=== PATIENT | female | born 1980 | race Caucasian/White ===

== ENCOUNTER 2016-06-27 13:27 | Emergency (ER) | payer MEDICAID ==
[~2016-06-27] VITALS: Ht 167.6 cm; Wt 56.8 kg
[~2016-06-27 13:27] MED LIST: ATIVAN 0.50.5 MG/TAB PO; CYMBALTA; CYMBALTA 20MG20 MG PO; MULTIPLE VITAMI1 CAP PO; NORCO 325 MG-101 TAB PO; ZANAFLEX2 MG PO
[2016-06-27 13:46] VITALS: BP 118/72; PULSE 86; TEMP 98.7
[2016-06-27] MEDS ORDERED: NEURONTIN400 MG/CAP PO (14:05)
[2016-06-27] MEDS ORDERED: ABILIFY5 MG PO (14:06)
== END 2016-06-27 15:00 | disposition home or self-care (01) ==
LOC: COL.ER 13:27
DX: S93.401A Sprain of unspecified ligament of right ankle, initial encounter (principal); S96.911A Strain of unspecified muscle and tendon at ankle and foot level, right foot, initial encounter; S93.601A Unspecified sprain of right foot, initial encounter; W10.1XXA Fall (on)(from) sidewalk curb, initial encounter; Y92.008 Other place in unspecified non-institutional (private) residence as the place of occurrence of the external cause

== ENCOUNTER → 2016-12-02 | Outpatient (REF) ==
[~2016-12-02] MED LIST changes: +ABILIFY5 MG PO; +ADDERALL XR20 MG PO; +NEURONTIN400 MG/CAP PO
== END ==
LOC: WSOH 15:00
DX: Z02.89 Encounter for other administrative examinations (principal)

== ENCOUNTER 2017-01-19 23:40 | Emergency (ER) | payer OTHER ==
[~2017-01-19] VITALS: Ht 167.6 cm; Wt 51.1 kg
[~2017-01-19 23:40] MED LIST changes: -ADDERALL XR20 MG PO
[2017-01-19 23:42] VITALS: TEMP 97.7
[2017-01-19] MEDS ORDERED: ADDERALL XR20 MG PO (23:48)
[2017-01-20 00:31] LABS: BASO # 0.1 (0.0-0.2); EOS % 0.7 % (0-4.0); GRAN # 3.1 (1.4-6.5); GRAN % 52.9 % (42.2-75.2); HEMATOCRIT 41.9 % (37.0-47.0); HEMOGLOBIN 14.4 g/dl (12.5-16.0); LYMPH # 2.2 (1.2-3.4); MEAN CELL VOLUME 83 fl (80.0-100.0); MEAN CORPUSCULAR HEMOGLOBIN 28 pg (27.0-31.0); MEAN CORPUSCULAR HGB CONC 34 g/dl (33.0-37.0); MEAN PLATELET VOLUME 9.7 fl (7.4-10.4); MONO # 0.5 (0.1-0.6); MONO % 7.9 % (1.7-9.3); PLATELET COUNT 340 K/mm3 (130-400); RED BLOOD COUNT 5.07 M/mm3 (4.10-5.30); WHITE BLOOD COUNT 5.9 K/mm3 (4.8-10.8)
[2017-01-20 00:40] LABS: ADJUSTED CALCIUM 9.4 mg/dL (8.4-10.2); ALANINE AMINOTRANSFERASE 30 U/L (9-52); ALBUMIN 4.9 gm/dL (3.5-5.0); ALKALINE PHOSPHATASE 67 U/L (50-136); ANION GAP 18 mmol/L (7-16); BILIRUBIN,TOTAL 0.6 mg/dL (0.0-1.0); BLOOD UREA NITROGEN 7 mg/dL (7-17); CALCIUM 10.1 mg/dL (8.4-10.2); CARBON DIOXIDE 19 mmol/L (22-30); CHLORIDE 104 mmol/L (98-107); GLUCOSE 100 mg/dL (74-106); POTASSIUM 3.9 mmol/L (3.4-5.0); SODIUM 141 mmol/L (137-145); TOTAL PROTEIN 7.7 gm/dL (6.4-8.2)
[2017-01-20 00:51] LABS: TROPONIN-I < 0.012 ng/mL (0.000-0.034)
[2017-01-20 03:45] VITALS: BP 111/73; PULSE 109
== END 2017-01-20 03:45 | disposition home or self-care (01) ==
LOC: COL.ER 23:40
PROVIDERS: Emergency Medicine
DX: R07.9 Chest pain, unspecified (principal); Q87.418 Marfan syndrome with other cardiovascular manifestations; F41.9 Anxiety disorder, unspecified
CPT/HCPCS: J1885; J2060; Q9967

== ENCOUNTER 2017-02-02 06:12 | Emergency (ER) | payer OTHER ==
[~2017-02-02] VITALS: Ht 170.2 cm; Wt 54.5 kg
[~2017-02-02 06:12] MED LIST changes: +ADDERALL XR20 MG PO
[2017-02-02 06:17] VITALS: TEMP 98.3
[2017-02-02] MEDS ORDERED: AMITRIPTYLINE H25 M1 PO (06:19)
[2017-02-02] MEDS ORDERED: INDERAL 10MG10 MG PO (06:19)
[2017-02-02 07:14] VITALS: BP 116/54
[2017-02-02 07:45] VITALS: PULSE 86
== END 2017-02-02 07:45 | disposition home or self-care (01) ==
LOC: COL.ER 06:12
DX: M25.561 Pain in right knee (principal); Z90.89 Acquired absence of other organs; Z90.49 Acquired absence of other specified parts of digestive tract; Z98.890 Other specified postprocedural states
CPT/HCPCS: L1830

== ENCOUNTER 2017-02-17 17:04 | Emergency (ER) | payer OTHER ==
[~2017-02-17] VITALS: Ht 167.6 cm; Wt 54.5 kg
[~2017-02-17 17:04] MED LIST changes: +AMITRIPTYLINE H25 M1 PO; +INDERAL 10MG10 MG PO
[2017-02-17 17:12] VITALS: BP 121/58; PULSE 103; TEMP 98.4
[2017-02-17] MEDS ORDERED: NORCO 325 MG-51 TAB PO (19:04)
== END 2017-02-17 19:17 | disposition home or self-care (01) ==
LOC: COL.ER 17:04
DX: M51.16 Intervertebral disc disorders with radiculopathy, lumbar region (principal); M47.26 Other spondylosis with radiculopathy, lumbar region; F32.9 Major depressive disorder, single episode, unspecified; F41.9 Anxiety disorder, unspecified; M62.830 Muscle spasm of back; G89.29 Other chronic pain
CPT/HCPCS: J1885

== ENCOUNTER → 2017-07-15 | Outpatient (CLI) | payer BC ==
[~2017-07-15] MED LIST changes: +ADDERALL30 MG PO; +CLEOCIN HC150 MG/CAP PO; +LITHOBID 3300 MG/TAB PO; +NORCO 325 MG-51 TAB PO; +ZOFRAN 4MG T4 MG/TAB PO
[2017-07-15 02:44] LABS: HEMATOCRIT 37.6 % (37.0-47.0); HEMOGLOBIN 12.4 g/dl (12.5-16.0); MEAN CELL VOLUME 82 fl (80.0-100.0); MEAN CORPUSCULAR HEMOGLOBIN 27 pg (27.0-31.0); MEAN CORPUSCULAR HGB CONC 33 g/dl (33.0-37.0); MEAN PLATELET VOLUME 9.5 fl (7.4-10.4); PLATELET COUNT 329 K/mm3 (130-400); RED BLOOD COUNT 4.58 M/mm3 (4.10-5.30); REDCELL DISTRIBUTION WIDTH-CV 13.1 % (11.5-14.5)
[2017-07-15 02:55] LABS: ALBUMIN 4.5 gm/dL (3.5-5.0); BILIRUBIN,TOTAL 0.2 mg/dL (0.0-1.0); CALCIUM 9.1 mg/dL (8.4-10.2); CHOLESTEROL RISK RATIO 2.5; CREATININE, serum 0.81 mg/dL (0.52-1.25); POTASSIUM 3.7 mmol/L (3.4-5.0); TOTAL PROTEIN 7.3 gm/dL (6.4-8.2)
[2017-07-15 03:25] LABS: THYROID STIMULATING HORMONE 1.85 uIU/mL (0.465-4.680)
== END ==
LOC: ZCOL.LAB 02:27
PROVIDERS: Nurse Practitioner
DX: Z79.899 Other long term (current) drug therapy (principal)

== ENCOUNTER 2017-07-16 05:44 | Emergency (ER) | payer OTHER ==
[~2017-07-16] VITALS: Ht 167.6 cm; Wt 52.3 kg
[~2017-07-16 05:44] MED LIST changes: -ADDERALL30 MG PO; -CLEOCIN HC150 MG/CAP PO; -LITHOBID 3300 MG/TAB PO; -ZOFRAN 4MG T4 MG/TAB PO
[2017-07-16 05:48] VITALS: BP 127/70; TEMP 98.1
[2017-07-16] MEDS ORDERED: ADDERALL30 MG PO (05:51)
[2017-07-16] MEDS ORDERED: CLEOCIN HC150 MG/CAP PO (05:52)
[2017-07-16] MEDS ORDERED: LITHOBID 3300 MG/TAB PO (05:53)
[2017-07-16 06:23] LABS: BASO # 0.1 (0.0-0.2); BASO % 0.5 % (0.0-2.0); EOS # 0.1 (0.0-0.7); GRAN # 8.9 (1.4-6.5); GRAN % 83.6 % (42.2-75.2); HEMATOCRIT 38.4 % (37.0-47.0); HEMOGLOBIN 12.5 g/dl (12.5-16.0); LYMPH # 0.8 (1.2-3.4); LYMPH % 7.7 % (20.0-51.0); MEAN CELL VOLUME 83 fl (80.0-100.0); MEAN CORPUSCULAR HEMOGLOBIN 27 pg (27.0-31.0); MEAN CORPUSCULAR HGB CONC 33 g/dl (33.0-37.0); MEAN PLATELET VOLUME 9.6 fl (7.4-10.4); MONO # 0.7 (0.1-0.6); MONO % 6.6 % (1.7-9.3); PLATELET COUNT 296 K/mm3 (130-400); RED BLOOD COUNT 4.63 M/mm3 (4.10-5.30); REDCELL DISTRIBUTION WIDTH-CV 13.2 % (11.5-14.5)
[2017-07-16 06:38] LABS: ALBUMIN 4.7 gm/dL (3.5-5.0); BILIRUBIN,TOTAL 0.3 mg/dL (0.0-1.0); CALCIUM 9.2 mg/dL (8.4-10.2); CREATININE, serum 0.92 mg/dL (0.52-1.25); POTASSIUM 4.6 mmol/L (3.4-5.0); TOTAL PROTEIN 7.3 gm/dL (6.4-8.2)
[2017-07-16 07:17] VITALS: PULSE 98
[2017-07-16 07:20] LABS: AMYLASE 158 U/L (30-110); LIPASE 307 U/L (23-300)
[2017-07-16 07:21] LABS: C-REACTIVE PROTEIN < 0.5 mg/dL (0.0-0.9)
[2017-07-16 07:24] LABS: COLLECTION METHOD CLEAN CATCH
[2017-07-16] MEDS ORDERED: ZOFRAN 4MG T4 MG/TAB PO (07:30)
[2017-07-16 07:52] LABS: MUCOUS Present /lpf; PH 5 (5-8); URINE APPEARANCE Hazy; URINE BACTERIA Rare /hpf; URINE BILIRUBIN Negative (NEGATIVE); URINE BLOOD Negative (NEGATIVE); URINE COLOR Yellow; URINE GLUCOSE Negative (NEGATIVE); URINE KETONE Trace (NEGATIVE); URINE LEUKOCYTE ESTERASE Negative (NEGATIVE); URINE NITRATE Negative (NEGATIVE); URINE PROTEIN(semi-quant) 1+ (NEGATIVE); URINE RBC 0-2 /hpf; URINE UROBILINOGEN Negative (NEGATIVE)
== END 2017-07-16 08:02 | disposition home or self-care (01) ==
LOC: COL.ER 05:44
PROVIDERS: Emergency Medicine
DX: K52.9 Noninfective gastroenteritis and colitis, unspecified (principal); R94.5 Abnormal results of liver function studies; E03.9 Hypothyroidism, unspecified; Z90.49 Acquired absence of other specified parts of digestive tract; Z90.89 Acquired absence of other organs; Z98.890 Other specified postprocedural states
CPT/HCPCS: J2765; J7030

== ENCOUNTER 2019-03-03 11:23 | Emergency (ER) | payer SELFPAY ==
[~2019-03-03] VITALS: Ht 170.2 cm; Wt 59.1 kg
[~2019-03-03 11:23] MED LIST changes: +ADDERALL30 MG PO; +CLEOCIN HC150 MG/CAP PO; +LITHOBID 3300 MG/TAB PO; +ZOFRAN 4MG T4 MG/TAB PO
[2019-03-03 11:27] VITALS: BP 129/75
[2019-03-03 12:51] VITALS: PULSE 93; TEMP 98.9
== END 2019-03-03 12:51 | disposition home or self-care (01) ==
LOC: COL.ER 11:23
DX: S93.401A Sprain of unspecified ligament of right ankle, initial encounter (principal); F32.9 Major depressive disorder, single episode, unspecified; F41.9 Anxiety disorder, unspecified; Z98.890 Other specified postprocedural states; Z90.89 Acquired absence of other organs; V43.52XA Car driver injured in collision with other type car in traffic accident, initial encounter; Y92.410 Unspecified street and highway as the place of occurrence of the external cause